=== PATIENT | male | born 1945 | race Caucasian/White ===

== ENCOUNTER 2022-03-28 10:48 | Observation (INO) | payer OTHER ==
[~2022-03-28] VITALS: Ht 175.3 cm; Wt 81.6 kg
--- NOTE | 2022-03-28 10:54 | NUR ---
PT AMBULATED TO ER BED 7
[2022-03-28 11:01] VITALS: BP 128/67
--- NOTE | 2022-03-28 11:15 | NUR ---
76YO MALE PT C/O 01/02 R SIDED CHEST AND SHOULDER PAIN XYESTERDAY. REPORTS FALL, SLIPPED OVER WET FLOOR -LOC -HEAD INJURY . STATES RADIATION TO RU BACK W/ PAIN AT MOST ON MOVEMENT OR DEEP INHALATION. NO VISIBLE INJURIES NOTED . LIMITED ROM IN SHOULDER DUE TO PAIN . MILD RELIEF AFTER TAKING CBD. CLEAR CHRIS LUNG SOUNDS. DENIES N/V/D, FEVER , CHILLS OR SOB. PT AAOX4, NO VISIBLE DISTESS. RESPIRATIONS EVEN AND UNLABORED. HOB POSITIONED PER COMFORT. HX:DENIES NKA
--- NOTE | 2022-03-28 11:28 | NUR ---
MD TALLEY AT BEDSIDE FOR EVALUATION/ US
[2022-03-28] MEDS ORDERED: KETOROLAC 60 MG/2 ML VIAL IM ONE (11:30)
--- NOTE | 2022-03-28 12:16 | NUR ---
PT TAKEN TO XRAY VIA CLARISA
--- NOTE | 2022-03-28 12:39 | NUR ---
PT BROUGHT BACK FROM CT
[2022-03-28] MEDS ORDERED: NAPR-1704 PO (14:05)
[2022-03-28] MEDS ORDERED: ACET-8386 PO (14:05)
--- NOTE | 2022-03-28 15:25 | NUR ---
PT WHEELCHAIR ASSISTED TO RESTROOM . ON 6L VIA NR
--- NOTE | 2022-03-28 15:40 | NUR ---
PT WHEELCHAIR ASSISTED BACK TO ROOM
--- NOTE | 2022-03-28 17:33 | NUR ---
XRAY AT BEDSIDE
[2022-03-28] MEDS ORDERED: ATOR20TA40 PO (18:55)
--- NOTE | 2022-03-28 19:24 | NUR ---
REPORT GIVEN TO TALISHA LIVINGSTON. TRANSFER OF CARE AT THIS TIME
[2022-03-28] MEDS ORDERED: DICYCLOMINE HCL LIQUID 20 MG, ALUMINUM HYD/MAG/SIMETHICONE 30 ML, LIDOCAINE VISCOUS 2% ... PO ONE ×3 (20:15)
[2022-03-28] MEDS ORDERED: MORPHINE SULFATE 2 MG/ML SYR IM STA (20:16)
[2022-03-28] MEDS ORDERED: ACETAMINOPHEN 325 MG TAB PO PRN (20:30)
[2022-03-28] MEDS ORDERED: HYDROcodone/APAP 5/325 MG 1 TAB TAB PO PRN (20:30)
[2022-03-28] MEDS ORDERED: ONDANSETRON 4 MG/2 ML VIAL IVP PRN (20:30)
[2022-03-28] MEDS ORDERED: MAGNESIUM OXIDE 400 MG TAB PO PRN (20:30)
[2022-03-28] MEDS ORDERED: POTASSIUM CHLORIDE 10 MEQ TABER PO PRN (20:30)
[2022-03-28] MEDS ORDERED: MORPHINE SULFATE 4 MG/ML SYR IVP PRN (20:30)
[2022-03-28] MEDS ORDERED: DICYCLOMINE HCL LIQUID 10 MG/5 ML UDC ONE (20:31)
[2022-03-28] MEDS ORDERED: ALUMINUM HYD/MAG/SIMETHICONE 30 ML UDC ONE (20:31)
[2022-03-28] MEDS ORDERED: LIDOCAINE 5% 1 EA PATCH TP ONE (20:53)
--- NOTE | 2022-03-28 22:16 | NUR ---
PT IS RESTING IN BED WITH HOB ELEVATED. ON 6L NONBREATHER MASK SP02 96% . RESP EVEN AND UNLABORED. SHARP PAIN IN R OF CHEST RADIATES TO BACK. 7/10 PAIN. SKIN WARM AND DRY AND INTACT. PT IS A&OX4. ON BEDSIDE CARIDAC MONITOR. PT IS ADMITTED PENDING BED AVAIL . BED AT LOWEST POSITION SIDE RAILS UP X1
--- NOTE | 2022-03-29 04:22 | NUR ---
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 RESP EVEN AND UNLABORED. NO DISTRESS NOTED. HOB ELEVATED. NON BREATHER MASK ON. PENDING AVAIL BED ON TELE
--- NOTE | 2022-03-29 06:35 | NUR ---
PT IS ASLEEP IN BED WITH HOB ELEVATED. 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 SP02 100% 6L NONBREATHER. NO DISTRESS NOTED. RESP EVEN AND UNLABORED.
--- NOTE | 2022-03-29 07:20 | NUR ---
Report recieved from MIKI Hanna for transfer of care.
--- NOTE | 2022-03-29 07:30 | NUR ---
X-Ray at bedside.
[2022-03-29 07:53] LABS: BASOPHILS % (AUTO) 0.3 % (0.0-2.0); EOSINOPHILS % (AUTO) 0.6 % (0.0-4.0); HEMATOCRIT 42.8 % (36-52); HEMOGLOBIN 14.4 g/dL (12.0-18.0); LYMPHOCYTES # (AUTO) 1.4 K/uL (2.0-11.5); LYMPHOCYTES % (AUTO) 20.3 % (20.5-51.1); MEAN CORPUSCULAR HEMOGLOBIN 30 pg (27-31); MEAN CORPUSCULAR HGB CONC 34 g/dL (33-37); MEAN CORPUSCULAR VOLUME 90.1 fL (80-94); MONOCYTES # (AUTO) 0.7 K/uL (0.8-1.0); MONOCYTES % (AUTO) 10.5 % (1.7-9.3); NEUTROPHILS # (AUTO) 4.8 K/uL (1.8-7.7); NEUTROPHILS % (AUTO) 68.3 % (42.2-75.2); PLATELET COUNT (AUTO) 155 K/uL (140-450); RED BLOOD CELL COUNT(AUTO) 4.75 MIL/uL (4.20-6.10); RED CELL DISTRIBUTION WIDTH 13.7 % (11.6-13.7)
[2022-03-29 08:04] LABS: ANION GAP 12.4 (8-16); CARBON DIOXIDE 27.6 mmol/L (21-32); CHLORIDE 100 mmol/L (98-107); CREATININE 0.8 mg/dL (0.6-1.3); GLUCOSE 83 mg/dL (74-106); SODIUM SERUM 136 mmol/L (136-145); UREA NITROGEN, BLOOD 19 mg/dL (7-18)
--- NOTE | 2022-03-29 08:05 | NUR ---
Patient was offered breakfast tray.
[2022-03-29] MEDS: DOCUSATE SODIUM 100 MG GELCAP PO SCH (09:29)
[2022-03-29] MEDS: LIDOCAINE 5% 1 EA PATCH TP SCH (09:34)
--- NOTE | 2022-03-29 10:09 | NUR ---
Dr. Egan evaluating patient at bedside.
--- NOTE | 2022-03-29 10:18 | NUR ---
Per Dr. Egan, patient no longer needs oxygen. Oxygen was discontinued.
--- NOTE | 2022-03-29 11:44 | NUR ---
Dr. Otoole evaluating patient at bedside.
--- NOTE | 2022-03-29 12:46 | NUR ---
Patient was handed lunch tray. Patient is sitting up eating lunch.
[2022-03-29] MEDS ORDERED: HYDROcodone/APAP 5/325 MG 1 TAB TAB PO PRN (13:50)
--- NOTE | 2022-03-29 15:02 | NUR ---
Patient ambulated to restroom with steady gait.
--- NOTE | 2022-03-29 18:56 | NUR ---
Patient was offered dinner tray.
--- NOTE | 2022-03-29 19:18 | NUR ---
Report given to MIKI Hanna for transfer of care.
[2022-03-29] MEDS: HYDROcodone/APAP 10/325 MG 1 TAB TAB PO PRN (20:20)
[2022-03-30] MEDS ORDERED: CRUSHER, PILL MC ONE (03:38)
[2022-03-30] MEDS: HYDROcodone/APAP 10/325 MG 1 TAB TAB PO PRN (04:19)
--- NOTE | 2022-03-30 04:46 | NUR ---
PT IS ASLEEP IN BED WITH HOB ELEVATED. 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 A&OX4 UNDERSTANDS YORUBA WELL. DOES PREFER TO SPEAK ERITREAN. DENIES SOB OR CP. ONLY PAIN IS WITH EXGERSATION. VS WNL. SKIN WARM AND DRY. WILL CONTINUE TO MONITOR PT.
[2022-03-30 05:58] LABS: ANION GAP 13.2 (8-16); CARBON DIOXIDE 27.8 mmol/L (21-32); CHLORIDE 100 mmol/L (98-107); CREATININE 0.8 mg/dL (0.6-1.3); GLUCOSE 87 mg/dL (74-106); SODIUM SERUM 137 mmol/L (136-145); UREA NITROGEN, BLOOD 16 mg/dL (7-18)
[2022-03-30 06:06] LABS: MAGNESIUM 2.1 mg/dL (1.8-2.4); PHOSPHORUS 3.1 mg/dL (2.5-4.9)
[2022-03-30 06:35] LABS: BASOPHILS % (AUTO) 0.4 % (0.0-2.0); EOSINOPHILS # (AUTO) 0.1 K/uL (0-0.4); EOSINOPHILS % (AUTO) 1.3 % (0.0-4.0); HEMATOCRIT 42.3 % (36-52); HEMOGLOBIN 14.3 g/dL (12.0-18.0); LYMPHOCYTES # (AUTO) 1.6 K/uL (2.0-11.5); LYMPHOCYTES % (AUTO) 24.7 % (20.5-51.1); MEAN CORPUSCULAR HEMOGLOBIN 31 pg (27-31); MEAN CORPUSCULAR HGB CONC 34 g/dL (33-37); MONOCYTES # (AUTO) 0.7 K/uL (0.8-1.0); MONOCYTES % (AUTO) 11.7 % (1.7-9.3); NEUTROPHILS # (AUTO) 3.9 K/uL (1.8-7.7); NEUTROPHILS % (AUTO) 61.9 % (42.2-75.2); PLATELET COUNT (AUTO) 158 K/uL (140-450); RED BLOOD CELL COUNT(AUTO) 4.65 MIL/uL (4.20-6.10); RED CELL DISTRIBUTION WIDTH 13.4 % (11.6-13.7); WHITE BLOOD COUNT (AUTO) 6.4 K/uL (4.8-10.8)
--- NOTE | 2022-03-30 07:23 | NUR ---
REPORT GIVEN TO CHRISTIANO LIVINGSTON. TRANSFER OF CARE AT THIS TIME
--- NOTE | 2022-03-30 07:23 | NUR ---
REPORT RECEIVED FROM TALISHA LIVINGSTON. ASSUMED CARE AT THIS TIME
--- NOTE | 2022-03-30 07:34 | NUR ---
PATIENT HAS BEEN SCREENED AND CATEGORIZED LOW NUTRITION RISK. PATIENT WILL BE SEEN WITHIN 7 DAYS OF ADMISSION. 04/04/[address]
--- NOTE | 2022-03-30 08:00 | NUR ---
pt provided w/ breakfast. pt awake and eating in bed
[2022-03-30] MEDS: DOCUSATE SODIUM 100 MG GELCAP PO SCH (09:34)
[2022-03-30] MEDS: LIDOCAINE 5% 1 EA PATCH TP SCH (09:37)
--- NOTE | 2022-03-30 12:01 | NUR ---
pt provided w/ lunch. pt awake, repositioned and eating in bed
[2022-03-30] MEDS ORDERED: ACET-9525 PO (12:21)
[2022-03-30] MEDS ORDERED: DOCU-299 PO (12:21)
[2022-03-30] MEDS ORDERED: ACET-1182 PO (12:21)
--- NOTE | 2022-03-30 13:18 | NUR ---
MD STRAUSS AT BEDSIDE FOR REEVALUATION
[2022-03-30 14:20] VITALS: BP 131/83
--- NOTE | 2022-03-30 14:25 | NUR ---
IV removed, catheter intact and site benign. Applied folded 4x4 gauze and tape to stop bleeding.
--- NOTE | 2022-03-30 14:29 | NUR ---
Patient discharged FROM TELE/INPATIENT PER MD STRAUSS with v/s stable. Written and verbal after care instructions given and explained. Patient alert, oriented and verbalized understanding of instructions. Ambulatory with steady gait. All questions addressed prior to discharge. ID band removed. Patient advised to follow up with PMD. Rx of HYDROCODONE AND COLACE given.. Opportunity to ask questions provided and answered.
== END 2022-03-30 14:29 | disposition home or self-care (01) ==
LOC: MED 10:48 → MTU 20:33
PROVIDERS: ADMIT Hospitalist; ATTEND Hospitalist
DX: S22.41XA Multiple fractures of ribs, right side, initial encounter for closed fracture (principal); Z20.822 Contact with and (suspected) exposure to COVID-19; J93.9 Pneumothorax, unspecified; E78.00 Pure hypercholesterolemia, unspecified; W01.0XXA Fall on same level from slipping, tripping and stumbling without subsequent striking against object, initial encounter; Y93.89 Activity, other specified; Y92.89 Other specified places as the place of occurrence of the external cause; Z79.899 Other long term (current) drug therapy
CPT/HCPCS: 36415; 71045; 71101; 80048; 83735; 84100; 85025; 87426; 93005; 94760; 96372; 96374; 99285; G0378; J1644; J1885; J2270; Q0092